=== PATIENT | female | born 1990 | race Caucasian/White ===

== ENCOUNTER 2021-02-02 21:39 | Emergency (ER) | payer OTHER ==
[2021-02-03] MEDS ORDERED: ZYRTEC10 MG PO (00:59)
[2021-02-03] MEDS ORDERED: PEPCID20 MG PO (00:59)
[2021-02-03] MEDS ORDERED: PREDNISONE 20 M20 MG PO (00:59)
== END 2021-02-03 01:03 | disposition home or self-care (01) ==
LOC: ER1 21:39
DX: T78.40XA Allergy, unspecified, initial encounter (principal); F17.200 Nicotine dependence, unspecified, uncomplicated; E66.9 Obesity, unspecified
CPT/HCPCS: 96374; 96375; 99283; J1200; J2930